=== PATIENT | female | born 1930 | race Caucasian/White ===

== ENCOUNTER 2017-01-08 10:53 | Observation (INO) | payer MEDICARE ==
[~2017-01-08] VITALS: Ht 153.7 cm; Wt 79.0 kg
[~2017-01-08 10:53] MED LIST: ASPI325T PO; CENTTAB9 PO; ERGO50000 PO; FELO10TA PO; HYDR12.56 PO; LOTE20TA PO; PREV15CA20 PO; PREV30CA36 PO; RANI150 PO; SLOW160T PO; STOO100C PO
[2017-01-08 10:59] VITALS: BP_SYST 161; BP_SYST 191; BP_DIAS 86; BP_DIAS 89; PULSE 130; PULSE 71; RESP 16; RESP 18; TEMP 98.4; O2SAT 97; O2SAT 98
[2017-01-08] MEDS ORDERED: SODIUM CHLORIDE 0.9% FLUSH 10 ML FLUSH IVF PRN (11:30)
[2017-01-08 11:33] VITALS: BP 185/91; PULSE 81; RESP 17; O2SAT 96
[2017-01-08] MEDS ORDERED: ASPIRIN 325 MG TAB PO ONE (11:45)
--- NOTE | 2017-01-08 11:46 | PD ---
HPI Chief Complaint: Cardiac Complaint Time Seen by Provider: 11:39 Travel History International Travel<30 days: No Contact w/Intl Traveler<30days: No History of Present Illness HPI 83-year-old female with history of HTN presents to the ED for evaluation of 2 day history of central chest heaviness. Onset yesterday morning after waking. Constant since then. No alleviating or exacerbating factors reported. Patient denies associated palpitations, diaphoresis, shortness of breath, nausea or vomiting. She endorses increasing dyspnea on exertion over the last year, no worse over the last 2 days. She denies fever, chills, cough, abdominal pain, nausea, vomiting, dysuria, lower extremity edema. She saw her primary care this morning and was instructed to report to the ED. She lives half the year and [facility] and half in [facility]. She is followed by Dr Perkins, PCP. She's never had a stress test. She's never smoked. She does not have a oracle ebs developer. PFSH Past Medical History Arthritis: Yes (knees, hands, general aches) Asthma: No Autoimmune Disease: No Blood Disorders: No Anxiety: No Depression: Yes Heart Rhythm Problems: No Cancer: Yes (basal cell- face- 4 years ago, RECTAL CANCER) Cardiovascular Problems: Yes High Cholesterol: No Chemotherapy: Yes Chest Pain: Yes Congestive Heart Failure: No COPD: No Cerebrovascular Accident: Yes (20 years ago- no effects) Diabetes: No Diminished Hearing: No Endocrine: No Gastrointestinal Disorders: Yes GERD: Yes Glaucoma: No Genitourinary: No Headaches: No Hepatitis: No Hiatal Hernia: No Hypertension: Yes Immune Disorder: No Kidney Stones: No Musculoskeletal: Yes (OSTEOPENIA, FX LEFT HAND 7 WEEKS AGO) Neurologic: Yes Psychiatric: Yes Reproductive: No Respiratory: No Migraines: No Myocardial Infarction: No Radiation Therapy: Yes Renal Failure: No Seizures: No Sickle Cell Disease: No Sleep Apnea: No Thyroid Disease: No Ulcer: No ?: Not Past Surgical History Abdominal Surgery: Yes (gall bladder- 10 years ago) AICD: No Appendectomy: No Arteriovenous Shunt: No Cardiac Surgery: No Cholecystectomy: Yes Ear Surgery: No Endocrine Surgery: No Genitourinary Surgery: No Gynecologic Surgery: Yes (hysterectomy- 1975) Hysterectomy: Yes Insulin Pump: No Joint Replacement: No Oral Surgery: No Pacemaker: No Thoracic Surgery: No Other Surgery: Yes Social History Alcohol Use: Yes (GIN AND TONIC ONCE EVERY ONE TO TWO WEEKS) Tobacco Use: No Substance Use: No Allergies-Medications (Allergen,Severity, Reaction): Coded Allergies: No Known Allergies (Verified Allergy, Unknown, 01/08/17) Reported Meds & Prescriptions Reported Meds & Active Scripts Active Reported Centrum Silver Adult 50+ (Multiple Vitamins W/ Minerals) 0.4 Mg-300 Mcg-250 Mcg Tab 1 Tab PO DAILY Hydrochlorothiazide 12.5 Mg Tab 12.5 Mg PO DAILY Amlodipine (Amlodipine Besylate) 10 Mg Tab 10 Mg PO DAILY Colace (Docusate Sodium) 100 Mg Capsule 100 Mg PO DAILY PRN Vitamin D3 (Cholecalciferol) 50,000 Unit Cap 50,000 Units PO SATURDAY Lotensin (Benazepril HCl) 20 Mg Tab 20 Mg PO BID Aspirin 325 Mg Tab 325 Mg PO DAILY Review of Systems Except as stated in HPI: all other systems reviewed are Neg Physical Exam Narrative GENERAL: Well-nourished, well-developed talkative white female in no acute distress. SKIN: Focused skin assessment warm/dry. Erythematous, blanching area of the anterior chest. HEAD: Normocephalic. EYES: No scleral icterus. No injection or drainage. NECK: Supple, trachea midline. No JVD or lymphadenopathy. CARDIOVASCULAR: Regular rate and rhythm without murmurs, gallops, or rubs. RESPIRATORY: Breath sounds clear and equal bilaterally. No accessory muscle use. GASTROINTESTINAL: Abdomen soft, non-tender, nondistended. Active bowel sounds MUSCULOSKELETAL: No cyanosis, or edema. BACK: Nontender without obvious deformity. No CVA tenderness. Data Data Last Documented VS Vital Signs Date Time Temp Pulse Resp B/P (MAP) Pulse Ox O2 Delivery O2 Flow Rate FiO2 01/08/17 11:35 (122) 01/08/17 11:33 81 17 96 Room Air 01/08/17 10:59 98.4 Orders Orders Electrocardiogram (01/08/17 11:27) Basic Metabolic Panel (Bmp) (01/08/17 11:27) Ckmb (Isoenzyme) Profile (01/08/17 11:27) Complete Blood Count With Diff (01/08/17 11:27) Magnesium (Mg) (01/08/17 11:27) Prothrombin Time / Inr (Pt) (01/08/17 11:27) Act Partial Throm Time (Ptt) (01/08/17 11:27) Troponin I (01/08/17 11:27) Chest, Single Ap (01/08/17 11:27) Ecg Monitoring (01/08/17 11:27) Bilateral Bp Monitoring (01/08/17 11:27) Iv Access Insert/Monitor (01/08/17 11:27) Oximetry (01/08/17 11:27) Sodium Chloride 0.9% Flush (Ns Flush) (01/08/17 11:30) B-Type Natriuretic Peptide (01/08/17 11:38) Aspirin (Aspirin) (01/08/17 11:45) Admit Order (Ed Use Only) (01/08/17 13:40) Labs Laboratory Tests Test 01/08/17 11:30 01/08/17 11:50 Prothrombin Time 11.0 SEC Prothromb Time International Ratio 1.0 RATIO Activated Partial Thromboplast Time 25.8 SEC Blood Urea Nitrogen 18 MG/DL Creatinine 0.87 MG/DL Random Glucose 108 MG/DL Calcium Level 8.8 MG/DL Magnesium Level 2.1 MG/DL Sodium Level 138 MEQ/L Potassium Level 3.6 MEQ/L Chloride Level 106 MEQ/L Carbon Dioxide Level 23.3 MEQ/L Anion Gap 9 MEQ/L Estimat Glomerular Filtration Rate 62 ML/MIN Total Creatine Kinase 43 U/L Troponin I LESS THAN 0.02 NG/ML White Blood Count 8.1 TH/MM3 Red Blood Count 4.62 MIL/MM3 Hemoglobin 14.0 GM/DL Hematocrit 41.8 % Mean Corpuscular Volume 90.5 FL Mean Corpuscular Hemoglobin 30.2 PG Mean Corpuscular Hemoglobin Concent 33.4 % Red Cell Distribution Width 14.1 % Platelet Count 205 TH/MM3 Mean Platelet Volume 9.2 FL Neutrophils (%) (Auto) 67.6 % Lymphocytes (%) (Auto) 18.7 % Monocytes (%) (Auto) 11.8 % Eosinophils (%) (Auto) 1.4 % Basophils (%) (Auto) 0.5 % Neutrophils # (Auto) 5.5 TH/MM3 Lymphocytes # (Auto) 1.5 TH/MM3 Monocytes # (Auto) 0.9 TH/MM3 Eosinophils # (Auto) 0.1 TH/MM3 Basophils # (Auto) 0.0 TH/MM3 CBC Comment DIFF FINAL Differential Comment B-Type Natriuretic Peptide 98 PG/ML MDM Medical Decision Making Medical Screen Exam Complete: Yes Emergency Medical Condition: Yes Differential Diagnosis CHF versus PNA versus ACS versus other Narrative Course 83-year-old female with history of HTN presents to the ED for evaluation of 2 day history of central chest heaviness. Onset yesterday morning after waking. Constant since then. No alleviating or exacerbating factors reported. She endorses increasing dyspnea on exertion over the last year, no worse over the last 2 days. She saw her primary care this morning and was instructed to report to the ED. She is followed by Dr Perkins, PCP. She's never had a stress test. She's never smoked. She does not have a oracle ebs developer. Patient's hypertensive on presentation but this resolves during the course of evaluation. Physical exam is reassuring. EKG rate 82, sinus rhythm. MD interval 167, QRS 89, QTc 413. No acute ST changes. Reviewed by Dr. Wells. CXR: No acute abnormality. Probable calcification of the mitral valve annulus per radiology read Troponin negative 1 CBC, CMP, coags: BNP all unremarkable. I discussed the patient with Dr. Wells who agrees that admission to the chest pain center is appropriate. I discussed the plan with the patient who is amenable. Please see chest pain center notes for disposition. Carlene Evans Jan 08, 2017 11:46
[2017-01-08 12:20] LABS: AUTOMATED NEUTROPHIL # 5.5 TH/MM3 (1.8-7.7); BASOPHIL % 0.5 % (0.0-2.0); EOSINOPHIL # 0.1 TH/MM3 (0-0.4); EOSINOPHIL % 1.4 % (0.0-4.0); HEMATOCRIT 41.8 % (35.0-46.0); HEMO FLAGS DIFF FINAL; LYMPH % 18.7 % (9.0-44.0); LYMPHOCYTE # 1.5 TH/MM3 (1.0-4.8); MEAN CELL VOLUME 90.5 FL (80.0-100.0); MEAN CORPUSCULAR HEMOGLOBIN 30.2 PG (27.0-34.0); MEAN CORPUSCULAR HGB CONC 33.4 % (32.0-36.0); MONO % 11.8 % (0.0-8.0); NEUT % 67.6 % (16.0-70.0); PLATELET COUNT 205 TH/MM3 (150-450); RED BLOOD COUNT 4.62 MIL/MM3 (4.00-5.30); RED CELL DISTRIBUTION WIDTH 14.1 % (11.6-17.2); WHITE BLOOD COUNT 8.1 TH/MM3 (4.0-11.0)
[2017-01-08 12:29] LABS: APTT (PATIENT) 25.8 SEC (24.3-30.1)
[2017-01-08 12:42] LABS: ANION GAP 9 MEQ/L (5-15); BICARBONATE 23.3 MEQ/L (21.0-32.0); BLOOD UREA NITROGEN 18 MG/DL (7-18); CHLORIDE 106 MEQ/L (98-107); GLOMERULAR FILTRATION RATE 62 ML/MIN (>89); MAGNESIUM 2.1 MG/DL (1.5-2.5); POTASSIUM 3.6 MEQ/L (3.5-5.1); SODIUM (NA) 138 MEQ/L (136-145)
[2017-01-08 12:56] LABS: CREATINE KINASE 43 U/L (26-192)
--- NOTE | 2017-01-08 13:46 | RADRPT ---
EXAM DATE/TIME: 01/08/2017 11:50 [facility] COMPARISON: No previous studies available for comparison. INDICATIONS : Chest pain and shortness of breath. Patient states she had chest heaviness and shortness of breath. MEDICAL HISTORY : None. SURGICAL HISTORY : None. ENCOUNTER: Initial ACUITY: 1 day PAIN SCORE: 0/10 LOCATION: Bilateral chest FINDINGS: The heart is normal in size. There is calcification of the mitral annulus. The lungs are clear. The b raymundo structures are intact. CONCLUSION: 1. No acute abnormality identified. 2. Probable calcification of the mitral valve anulus. Amari Walton MD on January 08, 2017 at 13:43 Board Certified Radiologist. This report was verified electronically.
[2017-01-08 13:59] VITALS: BP 154/74; PULSE 74; RESP 22; O2SAT 75; O2SAT 98
[2017-01-08] MEDS ORDERED: COLA100C5 PO (14:25)
[2017-01-08] MEDS ORDERED: AMLO10TA2 PO (14:25)
[2017-01-08] MEDS ORDERED: MULT1TAB PO (14:25)
[2017-01-08] MEDS ORDERED: HYDR12.56 PO (14:25)
[2017-01-08] MEDS ORDERED: LOTE20TA PO (14:25)
[2017-01-08] MEDS ORDERED: ASPI-183 PO (14:25)
[2017-01-08] MEDS ORDERED: CHOL1CAP34 PO (14:25)
[2017-01-08] MEDS ORDERED: ACETAMINOPHEN 500 MG CPLT PO PRN (14:30)
[2017-01-08] MEDS ORDERED: SODIUM CHLORIDE 0.9% FLUSH 5 ML FLUSH IVF PRN (14:30)
[2017-01-08] MEDS ORDERED: RESP: ALBUTEROL 2.5 MG/IPRATROPIUM 0.5 MG NEB (PRN) INH (14:30)
[2017-01-08] MEDS ORDERED: ACETAMINOPHEN/HYDROcodone 325 MG/7.5 MG TAB PO PRN (14:30)
[2017-01-08] MEDS ORDERED: ONDANSETRON HCL 4 MG/2 ML VIAL IV PUSH PRN (14:30)
[2017-01-08] MEDS ORDERED: cloNIDine HCL 0.1 MG TAB PO PRN (14:30)
[2017-01-08] MEDS ORDERED: ALPRAZolam 0.25 MG TAB PO PRN (14:30)
--- NOTE | 2017-01-08 14:34 | HHI.HP ---
[facility] Primary Care Physician Felipe Perkins MD Chief Complaint Chest pain History of Present Illness This is a 86-year-old female that presents to ED via private vehicle after being evaluated by her PCP Dr. Perkins for chest pain and shortness of breath. Patient states that she has become short of breath with even minimal walking over the past year. However she would never get chest discomfort. She states that yesterday soon after waking up 0830 she developed a heaviness in the center of her chest that lasted 15-20 minutes. No associated shortness breath, nausea, or diaphoresis. She called her PCP office who told her to come today to be evaluated. She went to the office and her PCP advised her to come to the ED. The discomfort did not recur. She cannot recall ever having a stress test or cardiac catheterization. Voices compliance with her medications. She was quite hypertensive when she arrived in the ED with systolic in the 180s which she states is very unusual for her. She states that her been enalapril and amlodipine have always worked very well. Her blood pressures have since improved in the ED without medication. Denies recent travel. Denies recent illnesses. Denies calf pain or swelling. Review of Systems General: Patient denies fevers, chills recent, and recent travel HEENT: Patient denies headache, sore throat, difficulty swallowing. Cardiovascular: Has the chest discomfort as mentioned above. Denies sensation of heart beating rapidly or irregularly. No syncope. Denies diaphoresis. Respiratory: Denies shortness of breath with the chest discomfort but she states she has been short of breath with minimal exertion over the past year. Denies inspirational chest discomfort. Denies coughing wheezing or hemoptysis. GI: Patient denies nausea, vomiting, diarrhea, abdominal pain, bloody stools. Musculoskeletal: Patient denies joint pain or edema. Denies calf pain or edema. Neurovascular: Patient denies numbness, tingling, weakness in extremities. Denies headache. Endocrine: Denies polyuria and polydipsia. Hematologic: Denies easy bruising. Skin: Denies rash or itching. Past Family Social History Allergies: Coded Allergies: No Known Allergies (Verified Allergy, Unknown, 01/08/17) Past Medical History Hypertension. Denies hyperlipidemia, diabetes, and known CAD. Past Surgical History Bilateral knee replacements. Hysterectomy and cholecystectomy. Reported Medications Reported Meds & Active Scripts Active Active Ordered Medications Current Medications Medications (Trade) Dose Ordered Sig/Kathia Route Start Time Stop Time Status Last Admin (NS Flush) 2 ml UNSCH PRN IVF 01/08/17 11:30 Family History Denies family history of CAD. Social History Social lifetime nonsmoker. She states she smoked about a year when she was 22. Physical Exam Vital Signs Vital Signs Date Time Temp Pulse Resp B/P (MAP) Pulse Ox O2 Delivery O2 Flow Rate FiO2 01/08/17 13:59 74 22 154/74 (100) 98 Room Air 01/08/17 11:35 (122) 01/08/17 11:33 81 17 185/91 (122) 96 Room Air 01/08/17 11:26 17 Room Air 01/08/17 10:59 98.4 130 18 191/89 (123) 97 Physical Exam GENERAL: This is a well-nourished, well-developed patient, in no apparent distress. Patient speaks in clear complete sentences. Patient is pleasant. HEENT: Head is atraumatic and normocephalic. Neck is supple without lymphadenopathy and trachea is midline. No JVD or carotid bruits. CARDIOVASCULAR: Regular rate and rhythm without murmurs, gallops, or rubs. RESPIRATORY: Clear to auscultation. Breath sounds equal bilaterally. No wheezes , rales, or rhonchi. Chest wall is nontender. No use of accessory muscles. GASTROINTESTINAL: Abdomen is nontender, nondistended. Abdomen soft. No obvious pulsatile mass or bruit. No CVA tenderness. Strong femoral pulses bilaterally. Normal bowel sounds in all quadrants. MUSCULOSKELETAL: Patient is moving upper and lower extremities freely. No calf tenderness or edema, no Homans sign. Strong pulses in upper and lower extremities. NEUROLOGICAL: Patient is alert and oriented. Cranial nerves 2-12 are grossly intact. No focal deficits and speech is clear. SKIN: No rash and turgor is normal. Laboratory Laboratory Tests Test 01/08/17 11:30 01/08/17 11:50 Prothrombin Time 11.0 Prothromb Time International Ratio 1.0 Activated Partial Thromboplast Time 25.8 Blood Urea Nitrogen 18 Creatinine 0.87 Random Glucose 108 Calcium Level 8.8 Magnesium Level 2.1 Sodium Level 138 Potassium Level 3.6 Chloride Level 106 Carbon Dioxide Level 23.3 Anion Gap 9 Estimat Glomerular Filtration Rate 62 Total Creatine Kinase 43 Troponin I LESS THAN 0.02 White Blood Count 8.1 Red Blood Count 4.62 Hemoglobin 14.0 Hematocrit 41.8 Mean Corpuscular Volume 90.5 Mean Corpuscular Hemoglobin 30.2 Mean Corpuscular Hemoglobin Concent 33.4 Red Cell Distribution Width 14.1 Platelet Count 205 Mean Platelet Volume 9.2 Neutrophils (%) (Auto) 67.6 Lymphocytes (%) (Auto) 18.7 Monocytes (%) (Auto) 11.8 Eosinophils (%) (Auto) 1.4 Basophils (%) (Auto) 0.5 Neutrophils # (Auto) 5.5 Lymphocytes # (Auto) 1.5 Monocytes # (Auto) 0.9 Eosinophils # (Auto) 0.1 Basophils # (Auto) 0.0 CBC Comment DIFF FINAL Differential Comment B-Type Natriuretic Peptide 98 Result Diagram: 01/08/17 1150 01/08/17 1130 Imaging Last 24 hours Impressions Chest X-Ray 01/08/17 1127 Signed Impressions: Service Date/Time: Sunday, January 08, 2017 11:50 - CONCLUSION: 1. No acute abnormality identified. 2. Probable calcification of the mitral valve anulus. Amari Walton MD Course Initial EKG has sinus rhythm rate of [address] segment depressions or elevations. Caprini VTE Risk Assessment Caprini VTE Risk Assessment: Mod/High Risk (score >= 2) Caprini Risk Assessment Model Point Value = 1 Point Value = 2 Point Value = 3 Point Value = 5 Age 41-60 Minor surgery BMI > 25 kg/m2 Swollen legs Varicose veins or History of unexplained or recurrent spontaneous Oral contraceptives or hormone replacement Sepsis (< 1 month) Serious lung disease, including pneumonia (< 1 month) Abnormal pulmonary function Acute myocardial infarction Congestive heart failure (< 1 month) History of inflammatory bowel disease Medical patient at bed rest Age 61-74 Arthroscopic surgery Major open surgery (> 45 min) Laparoscopic surgery (> 45 min) Malignancy Confined to bed (> 72 hours) Immobilizing plaster cast Central venous access Age >= 75 History of VTE Family history of VTE Factor V Leiden Prothrombin [id number] Lupus anticoagulant Anticardiolipin antibodies Elevated serum homocysteine Heparin-induced thrombocytopenia Other congenital or acquired thrombophilia Stroke (< 1 month) Elective arthroplasty Hip, pelvis, or leg fracture Acute spinal cord injury (< 1 month) Prophylaxis Regimen Total Risk Factor Score Risk Level Prophylaxis Regimen 0-1 Low Early ambulation 2 Moderate Order ONE of the following: *Sequential Compression Device (SCD) *Heparin 5000 units SQ BID 3-4 Higher Order ONE of the following medications: *Heparin 5000 units SQ TID *Enoxaparin/Lovenox 40 mg SQ daily (WT < 150 kg, CrCl > 30 mL/min) *Enoxaparin/Lovenox 30 mg SQ daily (WT < 150 kg, CrCl > 10-29 mL/min) *Enoxaparin/Lovenox 30 mg SQ BID (WT < 150 kg, CrCl > 30 mL/min) AND/OR *Sequential Compression Device (SCD) 5 or more Highest Order ONE of the following medications: *Heparin 5000 units SQ TID (Preferred with Epidurals) *Enoxaparin/Lovenox 40 mg SQ daily (WT < 150 kg, CrCl > 30 mL/min) *Enoxaparin/Lovenox 30 mg SQ daily (WT < 150 kg, CrCl > 10-29 mL/min) *Enoxaparin/Lovenox 30 mg SQ BID (WT < 150 kg, CrCl > 30 mL/min) AND *Sequential Compression Device (SCD) Assessment and Plan Assessment and Plan * Chest pain: Patient will continue to have serial cardiac enzymes and EKGs for ruling out purposes. She will be evaluated by Dr. Youssef cardiology in the chest pain center. Likely she will have a Lexiscan in the morning if she rules out. She will be discharged home if her stress test was nonischemic with instructions to follow-up with PCP. Patient should return to ED for interval issues. * Hypertension: Patient was hypertensive when she initially arrived in the ED which she states she is very unusual for. States her medications generally worked well. Vital signs have since improved without medication. We will continue her home meds and continue to monitor. Patient is stable at this time. She is agreeable to this plan. Messi Palacio Jan 08, 2017 14:34
[2017-01-08 15:03] VITALS: BP 128/69; PULSE 74; RESP 16; TEMP 97.7; O2SAT 96
[2017-01-08 15:25] LABS: CREATINE KINASE 45 U/L (26-192)
[2017-01-08] MEDS ORDERED: DOCUSATE SODIUM 100 MG CAP PO PRN (15:30)
[2017-01-08] MEDS: PANTOPRAZOLE SOD 40 MG DELAYED RELEASE TAB PO SCH (16:23)
--- NOTE | 2017-01-08 16:23 | PD ---
Data Data Last Documented VS Vital Signs Date Time Temp Pulse Resp B/P (MAP) Pulse Ox O2 Delivery O2 Flow Rate FiO2 01/08/17 11:35 (122) 01/08/17 11:33 81 17 96 Room Air 01/08/17 10:59 98.4 Orders Orders Electrocardiogram (01/08/17 11:27) Basic Metabolic Panel (Bmp) (01/08/17 11:27) Ckmb (Isoenzyme) Profile (01/08/17 11:27) Complete Blood Count With Diff (01/08/17 11:27) Magnesium (Mg) (01/08/17 11:27) Prothrombin Time / Inr (Pt) (01/08/17 11:27) Act Partial Throm Time (Ptt) (01/08/17 11:27) Troponin I (01/08/17 11:27) Chest, Single Ap (01/08/17 11:27) Ecg Monitoring (01/08/17 11:27) Bilateral Bp Monitoring (01/08/17 11:27) Iv Access Insert/Monitor (01/08/17 11:27) Oximetry (01/08/17 11:27) Sodium Chloride 0.9% Flush (Ns Flush) (01/08/17 11:30) B-Type Natriuretic Peptide (01/08/17 11:38) Aspirin (Aspirin) (01/08/17 11:45) Admit Order (Ed Use Only) (01/08/17 13:40) Labs Laboratory Tests Test 01/08/17 11:30 01/08/17 11:50 Prothrombin Time 11.0 SEC Prothromb Time International Ratio 1.0 RATIO Activated Partial Thromboplast Time 25.8 SEC Blood Urea Nitrogen 18 MG/DL Creatinine 0.87 MG/DL Random Glucose 108 MG/DL Calcium Level 8.8 MG/DL Magnesium Level 2.1 MG/DL Sodium Level 138 MEQ/L Potassium Level 3.6 MEQ/L Chloride Level 106 MEQ/L Carbon Dioxide Level 23.3 MEQ/L Anion Gap 9 MEQ/L Estimat Glomerular Filtration Rate 62 ML/MIN Total Creatine Kinase 43 U/L Troponin I LESS THAN 0.02 NG/ML White Blood Count 8.1 TH/MM3 Red Blood Count 4.62 MIL/MM3 Hemoglobin 14.0 GM/DL Hematocrit 41.8 % Mean Corpuscular Volume 90.5 FL Mean Corpuscular Hemoglobin 30.2 PG Mean Corpuscular Hemoglobin Concent 33.4 % Red Cell Distribution Width 14.1 % Platelet Count 205 TH/MM3 Mean Platelet Volume 9.2 FL Neutrophils (%) (Auto) 67.6 % Lymphocytes (%) (Auto) 18.7 % Monocytes (%) (Auto) 11.8 % Eosinophils (%) (Auto) 1.4 % Basophils (%) (Auto) 0.5 % Neutrophils # (Auto) 5.5 TH/MM3 Lymphocytes # (Auto) 1.5 TH/MM3 Monocytes # (Auto) 0.9 TH/MM3 Eosinophils # (Auto) 0.1 TH/MM3 Basophils # (Auto) 0.0 TH/MM3 CBC Comment DIFF FINAL Differential Comment B-Type Natriuretic Peptide 98 PG/ML MDM Supervised Visit with HAROON: Yes Narrative Course The history, exam, and medical decision-making in the associated midlevel provider note were completed with my assistance. I reviewed and agree with the findings presented. I attest that I had a [id number] encounter with the patient on the same day, and personally performed and documented my assessment and findings in the medical record. *My assessment and Findings: This is an 86 year old female who presents to the emergency department with chest pressure has been going on for 2 days. She has a history of hypertension. EKG is reassuring and an initial troponin is negative. I think patient would benefit from serial cardiac enzymes in the chest pain center. Jaycee Wells MD Jan 08, 2017 16:23
[2017-01-08 16:56] VITALS: PULSE 69
[2017-01-08 18:02] LABS: CREATINE KINASE 43 U/L (26-192)
[2017-01-08 19:53] VITALS: BP 123/77; PULSE 71; RESP 18; TEMP 97.8; O2SAT 96
[2017-01-08] MEDS: LISINOPRIL 20 MG TAB PO SCH (20:33)
[2017-01-08] MEDS: SODIUM CHLORIDE 0.9% FLUSH 5 ML FLUSH IVF SCH (20:35)
--- NOTE | 2017-01-08 21:19 | EKG ---
Date Performed: 01/08/2017 Time Performed: 11:29:35 PTAGE: 86 years EKG: Sinus rhythm WITH SINUS ARRHYTHMIA NORMAL ECG PREVIOUS TRACING : 05/13/2006 05.51 Compared to prior tracing no significant change DOCTOR: Xochitl Gutiérrez Interpretating Date/Time 01/08/2017 21:18:42
[2017-01-09 00:09] VITALS: BP 172/79; PULSE 83; RESP 19; TEMP 97.8; O2SAT 96
[2017-01-09 01:39] VITALS: PULSE 90
[2017-01-09 03:47] VITALS: BP 118/59; PULSE 77; RESP 18; TEMP 98.1; O2SAT 98
[2017-01-09 05:35] VITALS: PULSE 83
[2017-01-09 07:28] VITALS: BP 158/60; PULSE 82; RESP 16; TEMP 97.7; O2SAT 94
[2017-01-09] MEDS: SODIUM CHLORIDE 0.9% FLUSH 5 ML FLUSH IVF SCH (08:17)
[2017-01-09] MEDS: LISINOPRIL 20 MG TAB PO SCH (08:18)
[2017-01-09] MEDS ORDERED: HYDROCHLOROTHIAZIDE 12.5 MG CAP PO SCH (09:00)
[2017-01-09] MEDS ORDERED: MULTIVITAMINS/MINERALS THERAPEUTIC TAB PO SCH (09:00)
[2017-01-09] MEDS ORDERED: ASPIRIN 325 MG TAB PO SCH (09:00)
[2017-01-09] MEDS ORDERED: REGADENOSON INJ 0.4 MG/5 ML SYR ONE (09:59)
--- NOTE | 2017-01-09 11:33 | RADRPT ---
EXAM DATE/TIME: 01/09/2017 09:34 [facility] COMPARISON: No previous studies available for comparison. INDICATIONS : Midsternal chest pain. Angina. DOSE: 26.1 mCi Tc99m Myoview at stress. 8.5 mCi Tc99m Myoview at rest. 0.4 mg Lexiscan STRESS SYMPTOMS: Flush, short of breath and abdominal pain. EJECTION FRACTION: > 70% MEDICAL HISTORY : Hypertension. Rectal cancer. SURGICAL HISTORY : Cholecystectomy. Hysterectomy. ENCOUNTER: Initial ACUITY: 1 day PAIN SCALE: 3/10 LOCATION: Midsternal chest TECHNIQUE: The patient underwent pharmacologic stress with infusion of prescribed dose. Continuous ECG tracing was monitored during stress. Gated SPECT imaging was performed after stress and conventional SPECT i maging was performed at rest. The examination was performed on a SPECT/CT scanner, both attenuation and non-corrected datasets were reviewed. FINDINGS: DISTRIBUTION: The maximum perfused segment at stress is in the anterior wall. PERFUSION STUDY: The pattern of perfusion at stress is within normal limits. GATED STUDY: There is intact wall motion and thickening without hypokinetic or dyskinetic segments. CONCLUSION: No reversible defects to suggest acute ischemia. RISK CATEGORY: Low Shashank Tejeda Jr., MD on January 09, 2017 at 11:29 Board Certified Radiologist. This report was verified electronically.
[2017-01-09 11:42] VITALS: BP 121/76; PULSE 82; RESP 16; TEMP 97.7; O2SAT 93
[2017-01-09] MEDS: PANTOPRAZOLE SOD 40 MG DELAYED RELEASE TAB PO SCH (11:50)
--- NOTE | 2017-01-09 11:52 | HHI.DCPOC ---
Discharge Care Plan Diagnosis: (1) Chest pain (2) Hypertension Goals to Promote Your Health * To prevent worsening of your condition and complications * To maintain your health at the optimal level Directions to Meet Your Goals Take your medications as prescribed Follow your dietary instruction Follow activity as directed Keep your appointments as scheduled Take your immunizations and boosters as scheduled If your symptoms worsen call your PCP, if no PCP go to Urgent Care Center or Emergency Room Smoking is Dangerous to Your Health. Avoid second hand smoke Call the 24-hour hour crisis hotline for domestic abuse at Messi Palacio Jan 09, 2017 11:52
--- NOTE | 2017-01-09 16:31 | TR ---
Date Performed: 01/09/2017 Time Performed: 10:05:15 DOCTOR: Shakila Youssef DRUG LIST: CLINICAL HISTORY: ANGINA REASON FOR TEST: Angina REASON FOR ENDING: OBSERVATION: CONCLUSION: Lexiscan stress test was performed under standard four minute protocol. Radionuclid e was injected one minute prior to ending the test. No electrocardiographic abormalities were present to suggest ischemia. Nuclear imaging and interpretation are pending. COMMENTS:
--- NOTE | 2017-01-09 16:34 | EKG ---
Date Performed: 01/08/2017 Time Performed: 14:28:58 PTAGE: 86 years EKG: Sinus rhythm INFERIOR MYOCARDIAL INFARCTION ABNORMAL ECG Since PREVIOUS TRACING , no significant change noted PREVIOUS TRACIN01/08/2017 11.29 DOCTOR: Shakila Youssef Interpretating Date/Time 01/09/2017 16:33:07
--- NOTE | 2017-01-09 16:35 | EKG ---
Date Performed: 01/08/2017 Time Performed: 17:36:19 PTAGE: 86 years EKG: Sinus rhythm NORMAL ECG Since PREVIOUS TRACING , no significant change noted PREVIOUS TRACIN01/08/2017 14.28 DOCTOR: Shakila Youssef Interpretating Date/Time 01/09/2017 16:34:18
== END 2017-01-09 13:23 | disposition home or self-care (01) ==
LOC: NEPC 10:53 → NEDA 13:42 → NEPGCP 15:03
PROVIDERS: ADMIT Internal Medicine Interventional Cardiology; ATTEND Internal Medicine Interventional Cardiology
DX: R07.89 Other chest pain (principal); I10 Essential (primary) hypertension; I49.8 Other specified cardiac arrhythmias; R94.31 Abnormal electrocardiogram [ECG] [EKG]; R06.02 Shortness of breath; I20.9 Angina pectoris, unspecified; R10.9 Unspecified abdominal pain; M17.0 Bilateral primary osteoarthritis of knee; M19.042 Primary osteoarthritis, left hand; M19.041 Primary osteoarthritis, right hand; K21.9 Gastro-esophageal reflux disease without esophagitis; F32.9 Major depressive disorder, single episode, unspecified; M85.80 Other specified disorders of bone density and structure, unspecified site; Z86.73 Personal history of transient ischemic attack (TIA), and cerebral infarction without residual deficits; Z79.899 Other long term (current) drug therapy; Z79.82 Long term (current) use of aspirin; Z87.891 Personal history of nicotine dependence; Z85.048 Personal history of other malignant neoplasm of rectum, rectosigmoid junction, and anus; Z96.653 Presence of artificial knee joint, bilateral
CPT/HCPCS: 71010; 78452; 80048; 82550; 83735; 83880; 84484; 85025; 85610; 85730; 93005; 93017; 99285; A9502; G0378; J2785